=== PATIENT | male | born 1990 | race Caucasian/White ===

== ENCOUNTER 2017-02-10 02:56 | Emergency (ER) | payer SELFPAY ==
[~2017-02-10] VITALS: Ht 182.9 cm; Wt 69.4 kg
[~2017-02-10 02:56] MED LIST: FLONASE16 G1 BOTH NARES; NOHOMEMEDS; PENICILLIN; PREDNISONE20 MG PO; PROMETHAZINE HC25 M1 PO; TESSALON PERLE100 MG PO; VENTOLIN HFA18 GM IH
[2017-02-10] MEDS ORDERED: PERCOCET 5/31 TABLET PO (04:14)
[2017-02-10 04:42] VITALS: BP 137/103
== END 2017-02-10 04:43 | disposition home or self-care (01) ==
LOC: EME 02:56
PROC: 2W3EX1Z Immobilization of Right Hand using Splint (ICD-10-PCS; principal; 2017-02-10)
DX: S62.612A Displaced fracture of proximal phalanx of right middle finger, initial encounter for closed fracture (principal); Y04.0XXA Assault by unarmed brawl or fight, initial encounter
CPT/HCPCS: 73130; 99281; 99284

== ENCOUNTER 2017-02-20 12:04 | Day surgery (SDC) | payer OTHER ==
[~2017-02-20] VITALS: Ht 185.4 cm; Wt 68.0 kg
[~2017-02-20 12:04] MED LIST changes: +PERCOCET 5/31 TABLET PO; +TYLENOL WITH C1 EACH PO
[2017-02-20 12:52] VITALS: BP 132/88
[2017-02-20 18:32] VITALS: BP 138/84
[2017-02-20 19:12] VITALS: BP 134/81
== END 2017-02-20 19:30 | disposition home or self-care (01) ==
LOC: SDC 12:04
PROC: 0PST04Z Reposition Right Finger Phalanx with Internal Fixation Device, Open Approach (ICD-10-PCS; principal; 2017-02-20)
DX: S62.612A Displaced fracture of proximal phalanx of right middle finger, initial encounter for closed fracture (principal); X58.XXXA Exposure to other specified factors, initial encounter; Z87.891 Personal history of nicotine dependence
CPT/HCPCS: 73140; 76000; C1713; J0330; J0690; J1100; J1170; J2250; J2405; J2710; J3010; S0020

== ENCOUNTER 2017-04-29 21:31 | Emergency (ER) | payer OTHER ==
[~2017-04-29] VITALS: Ht 188 cm; Wt 69.5 kg
[2017-04-29] MEDS ORDERED: PEN-VEE K,VEET500 MG PO (22:28)
[2017-04-29] MEDS ORDERED: ULTRAM50 MG PO (22:28)
[2017-04-29 23:13] VITALS: BP 133/96
== END 2017-04-29 23:27 | disposition home or self-care (01) ==
LOC: EME 21:31 → RME 21:31
DX: K02.9 Dental caries, unspecified (principal); S02.5XXA Fracture of tooth (traumatic), initial encounter for closed fracture; R51 Headache
CPT/HCPCS: 99281; 99283